=== PATIENT | male | born 1930 | race Caucasian/White ===

== ENCOUNTER 2017-06-23 09:02 | Emergency (ER) | payer MEDICARE ==
[~2017-06-23] VITALS: Ht 180.3 cm; Wt 76.1 kg
[~2017-06-23 09:02] MED LIST: CHOLTAB3 PO; COEN1CAP PO; DIAZ-165 PO; SAW1000C PO
[2017-06-23 09:03] VITALS: TEMP 36.5; Ht 180.3 cm; Wt 76.1 kg
[2017-06-23] MEDS ORDERED: CHOL400C7 PO (09:50)
[2017-06-23 09:57] LABS: BASO % 0.3 %; BASO ABS # 0.01 K/uL (0-0.2); COMPLETE YES; EOS % 1.4 %; HEMATOCRIT 42.2 % (42-52); IG% 0.3 %; LYMPH % 30.8 %; LYMPH ABS # 1.14 K/uL (1.2-3.4); MEAN CELL VOLUME 92.5 fL (80-100); MEAN CORPUSCULAR HGB CONC 34.6 g/dl (32-36); MEAN PLATELET VOLUME 9.2 fL (7.4-10.4); NEUT % 57.2 %; PLATELET COUNT 181 K/uL (130-400); RED BLOOD COUNT 4.56 M/uL (4.7-6.1)
[2017-06-23 10:22] LABS: ALT/SGPT 23 U/L (12-78); AST/SGOT 21 U/L (15-37); BLOOD UREA NITROGEN 15 mg/dl (7-18); BUN/CREATININE RATIO 11.8 (10-20); CALCIUM 9.7 mg/dl (8.5-10.1); CARBON DIOXIDE 28 mmol/L (21-32); CHLORIDE 105 mmol/L (98-107); GLUCOSE 111 mg/dl (70-99); POTASSIUM 3.8 mmol/L (3.5-5.1); SODIUM 140 mmol/L (136-145)
[2017-06-23 10:28] LABS: ALKALINE PHOSPHATASE 57 U/L (45-117)
[2017-06-23 11:24] LABS: URINE APPEARANCE CLEAR (CLEAR); URINE BILIRUBIN NEG (NEG); URINE COLOR YELLOW; URINE EPITHELIAL CELL AUTO 0-5 /lpf (0-5); URINE NITRITE NEG (NEG); URINE PH 5.5 (4.5-7.5); URINE SPECIFIC GRAVITY 1.011 (1.000-1.030); UROBILINOGEN NEG (NEG); ZZUR CULT IF INDIC CLEAN CATCH NO
[2017-06-23 11:25] LABS: MANUAL MICROSCOPIC REQUIRED? NO; REVIEW REQ? NO
[2017-06-23 12:45] VITALS: BP 152/92; PULSE 84; O2SAT 95
--- NOTE | 2017-06-23 14:50 | EMERGENCY ROOM VISIT NOTE ---
History Report prepared by Reinier: Landon Fernandez Under the Supervision of: Dr. Jonas Hays D.O. First contact with patient: 09:08 Chief Complaint: GI ASSESSMENT Stated Complaint: BLEEDING FROM RECTUM History of Present Illness The patient is an 86 year old male who presents to the Emergency Room with concerns over an episode of bloody stool that occurred shortly prior to arrival. The patient states that he has been constipated for the past two days. He normally has a bowel movement once per day, but had not gone in the past two days. He was able to have a bowel movement this morning which produced normal hard stool. He denies the stool being black or tarry. After the bowel movement the patient described experiencing a "gush of blood" into the toilet bowl. He estimated roughly 1 quart of blood was expelled. He admits straining to go, due to the constipation. He denies any current abdominal pain, nausea, vomiting, or diarrhea. The patient also denies headache, change in vision, fevers, chest pain , shortness of breath, and pain with urination. 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 A total of 10 systems reviewed and were otherwise negative. Past Medical & Surgical Medical Problems: (1) Urinary problem Family History Cancer Social History Smoking Status: Never Smoker Alcohol Use: none Drug Use: none Marital Status: single Housing Status: lives alone Occupation Status: retired Current/Historical Medications Scheduled Cholecalciferol (Vitamin D 400 Iu), 400 INTER.UNIT PO DAILY Coenzyme Q10 (Ubidecarenone) (Co Q10), 1 CAP PO DAILY Scheduled PRN Diazepam (Valium), 5 MG PO QID PRN Allergies Coded Allergies: Oxycodone (Verified Adverse Reaction, Unknown, DOES NOT TAKE, USES VALUIM DAILY, 06/23/17) Physical Exam Vital Signs Date Time Temp Pulse Resp B/P (MAP) Pulse Ox O2 Delivery O2 Flow Rate FiO2 06/23/17 12:45 84 16 152/92 95 06/23/17 10:45 80 17 163/81 94 Room Air 06/23/17 09:03 36.5 89 18 164/84 95 Room Air Physical Exam GENERAL: Sitting up in bed, alert, well appearing, well nourished, no distress, non-toxic EYE EXAM: normal conjunctiva OROPHARYNX: no exudate, no erythema, lips, buccal mucosa, and tongue normal and mucous membranes are moist NECK: supple, no nuchal rigidity, no adenopathy, non-tender LUNGS: Clear to auscultation. Normal chest wall mechanics HEART: no murmurs, S1 normal and S2 normal ABDOMEN: abdomen soft, non-tender, normo-active bowel sounds, no masses, no rebound or guarding. BACK: Back is symmetrical on inspection and there is no deformity, no midline tenderness, no CVA tenderness. SKIN: no rashes and no bruising UPPER EXTREMITIES: upper extremities are grossly normal. LOWER EXTREMITIES: No pitting edema. NEURO EXAM: Normal sensorium, cranial nerves II-XII grossly intact, normal speech, no gross weakness of arms, no gross weakness of legs. RECTAL: No external hemorrhoids, without stool, heme negative. Medical Decision & Procedures Laboratory Results 06/23/17 09:38 Red Blood Count 4.56, Mean Corpuscular Volume 92.5, Mean Corpuscular Hemoglobin 32.0, Mean Corpuscular Hemoglobin Concent 34.6, Mean Platelet Volume 9.2, Neutrophils (%) (Auto) 57.2, Lymphocytes (%) (Auto) 30.8, Monocytes (%) (Auto) 10.0, Eosinophils (%) (Auto) 1.4, Basophils (%) (Auto) 0.3, Neutrophils # (Auto ) 2.12, Lymphocytes # (Auto) 1.14, Monocytes # (Auto) 0.37, Eosinophils # (Auto ) 0.05, Basophils # (Auto) 0.01 06/23/17 09:38 Test 06/23/17 09:38 06/23/17 11:00 White Blood Count 3.70 K/uL (4.8-10.8) Red Blood Count 4.56 M/uL (4.7-6.1) Hemoglobin 14.6 g/dL (14.0-18.0) Hematocrit 42.2 % (42-52) Mean Corpuscular Volume 92.5 fL (80-100) Mean Corpuscular Hemoglobin 32.0 pg (25-34) Mean Corpuscular Hemoglobin Concent 34.6 g/dl (32-36) Platelet Count 181 K/uL (130-400) Mean Platelet Volume 9.2 fL (7.4-10.4) Neutrophils (%) (Auto) 57.2 % Lymphocytes (%) (Auto) 30.8 % Monocytes (%) (Auto) 10.0 % Eosinophils (%) (Auto) 1.4 % Basophils (%) (Auto) 0.3 % Neutrophils # (Auto) 2.12 K/uL (1.4-6.5) Lymphocytes # (Auto) 1.14 K/uL (1.2-3.4) Monocytes # (Auto) 0.37 K/uL (0.11-0.59) Eosinophils # (Auto) 0.05 K/uL (0-0.5) Basophils # (Auto) 0.01 K/uL (0-0.2) RDW Standard Deviation 45.4 fL (36.4-46.3) RDW Coefficient of Variation 13.4 % (11.5-14.5) Immature Granulocyte % (Auto) 0.3 % Immature Granulocyte # (Auto) 0.01 K/uL (0.00-0.02) Anion Gap 7.0 mmol/L (3-11) Est Creatinine Clear Calc Drug Dose 42.6 ml/min Estimated GFR () 56.9 Estimated GFR (Non- 49.1 BUN/Creatinine Ratio 11.8 (10-20) Calcium Level 9.7 mg/dl (8.5-10.1) Total Bilirubin 0.4 mg/dl (0.2-1) Direct Bilirubin < 0.1 mg/dl (0-0.2) Aspartate Amino Transf (AST/SGOT) 21 U/L (15-37) Alanine Aminotransferase (ALT/SGPT) 23 U/L (12-78) Alkaline Phosphatase 57 U/L (45-117) Total Protein 7.5 gm/dl (6.4-8.2) Albumin 4.0 gm/dl (3.4-5.0) Lipase 120 U/L (73-393) Urine Color YELLOW Urine Appearance CLEAR (CLEAR) Urine pH 5.5 (4.5-7.5) Urine Specific [place] 1.011 (1.000-1.030) Urine Protein NEG (NEG) Urine Glucose (UA) NEG (NEG) Urine Ketones NEG (NEG) Urine Occult Blood NEG (NEG) Urine Nitrite NEG (NEG) Urine Bilirubin NEG (NEG) Urine Urobilinogen NEG (NEG) Urine Leukocyte Esterase NEG (NEG) Urine WBC (Auto) 0 /hpf (0-5) Urine RBC (Auto) 0-4 /hpf (0-4) Urine Hyaline Casts (Auto) 0 /lpf (0-5) Urine Epithelial Cells (Auto) 0-5 /lpf (0-5) Urine Bacteria (Auto) NEG (NEG) Laboratory results per my review. ED Course ED COURSE: Vital signs were reviewed and showed hypertensive vitals The patients medical record was reviewed The above diagnostic studies were performed and reviewed. ED treatments and interventions as stated above. 0912: The patient was evaluated in room B5. A complete history and physical examination was performed. 1132: I discussed the case with Dr. Moshe GEORGE at this time. She will come to the department to see the patient. 1203: I discussed the case with Dr. Moshe GEORGE once again after her evaluation. She suggest colonoscopy as an outpatient. 1205: Upon reevaluation, the patient is resting in bed.I discussed my findings with the patient and he understands and agrees with the treatment plan. Based on the patients age, coexisting illnesses, exam and lab findings the decision to treat as an outpatient was made. The patient remained stable while under my care. The patient appeared well at the time of discharge. Medical Decision Differential diagnosis includes etiologies such as diverticulosis, AVM, coagulopathy, colitis, inflammatory bowel disease, malignancy, Patricia-Candelaria tear, esophagitis, peptic ulcer disease, variceal bleed, gastritis, epistaxis, fissure, hemorrhoids, as well as others were entertained. Patient is an 86-year-old male who presents the ER for bright red blood per rectum 1. He notes he has been straining to have a bowel movement for the past 2 days. He was straining earlier today and had a bowel movement which was followed by bright red blood. He has no other complaints at this time. No abdominal pain. Vitals are unremarkable. Mild hypertension likely situational. CBC along with BMP, LFTs, lipase and UA was unremarkable. Rectal was heme-negative. No external hemorrhoids. Patient was evaluated by GI at bedside. They recommended discharge for an outpatient colonoscopy as this is likely hemorrhoidal. I felt this was reasonable. Patient takes no blood thinners. Patient was discharged follow-up with GI. Discussed with Pt concerning signs and symptoms to watch out for. Pt was instructed to follow up with their PCP and discussed with the patient their option to return to the ED at anytime for persistent or worsening symptoms. The appropriate anticipatory guidance and out-patient management, including indications for return to the emergency department, were explained at length to the patient and understood. Medication Reconcilliation Current Medication List: was personally reviewed by me Blood Pressure Screening Patient's blood pressure: Elevated blood pressure Blood pressure disposition: Elevated BP felt to be situational Consults Time Called: 1203 Consulting Physician: Dr. Moshe GEORGE Returned Call: 1203 I discussed the case with Dr. Moshe GEORGE once again after her evaluation. She suggest colonoscopy as an outpatient. Impression Primary Impression: GI bleed Scribe Attestation The scribe's documentation has been prepared under my direction and personally reviewed by me in its entirety. I confirm that the note above accurately reflects all work, treatment, procedures, and medical decision making performed by me. Departure Information Dispostion Home / Self-Care Referrals Clarence Lincoln M.D. (PCP) Forms HOME CARE DOCUMENTATION FORM, IMPORTANT VISIT INFORMATION Patient Instructions My [facility] Additional Instructions Please follow up with your primary care doctor or if you are a student, [facility] with in the next 24 hours. Any worsening of your symptoms, please return to the ED immediately. This includes any fevers greater than 100.4, worsening pain, chest pain, shortness breath, persistent nausea, vomiting, unable to eat or drink, recurrent blood in your stool, or any other concerning signs or symptoms from your standpoint. Please call gastroenterology to follow up. Please take one to 2 tabs of MiraLAX daily to loosen stools. Any recurrent blood in your stool please return to the ER immediately. Problem Qualifiers Primary Impression: GI bleed GI bleed type/associated pathology: unspecified gastrointestinal hemorrhage type Qualified Codes: K92.2 - Gastrointestinal hemorrhage, unspecified
== END 2017-06-23 12:45 | disposition home or self-care (01) ==
LOC: C.EDB 09:03
DX: K92.2 Gastrointestinal hemorrhage, unspecified (principal); Z80.9 Family history of malignant neoplasm, unspecified; Z79.899 Other long term (current) drug therapy

== ENCOUNTER → 2017-09-29 | Outpatient (CLI) | payer MEDICARE ==
[~2017-09-29] MED LIST changes: +CHOL400C7 PO; -CHOLTAB3 PO; -SAW1000C PO
[2017-09-29 12:35] LABS: BASO % 0.4 %; BASO ABS # 0.02 K/uL (0-0.2); COMPLETE YES; HEMATOCRIT 40.5 % (42-52); IG% 0.2 %; LYMPH % 27.3 %; LYMPH ABS # 1.36 K/uL (1.2-3.4); MEAN CELL VOLUME 92.7 fL (80-100); MEAN CORPUSCULAR HEMOGLOBIN 31.6 pg (25-34); MEAN CORPUSCULAR HGB CONC 34.1 g/dl (32-36); MEAN PLATELET VOLUME 9.6 fL (7.4-10.4); MONO % 12.4 %; NEUT % 57.7 %; PLATELET COUNT 197 K/uL (130-400); RED BLOOD COUNT 4.37 M/uL (4.7-6.1); WHITE BLOOD COUNT 4.98 K/uL (4.8-10.8)
== END | disposition home or self-care (01) ==
LOC: C.LAB1850 11:27
PROVIDERS: ATTEND Internal Medicine Pulmonary Disease
DX: F41.9 Anxiety disorder, unspecified (principal); C61 Malignant neoplasm of prostate; E78.5 Hyperlipidemia, unspecified; L98.9 Disorder of the skin and subcutaneous tissue, unspecified; M79.603 Pain in arm, unspecified; M51.36 Other intervertebral disc degeneration, lumbar region; M75.51 Bursitis of right shoulder; K62.5 Hemorrhage of anus and rectum